=== PATIENT | female | born 1965 | race African-American/Black ===

== ENCOUNTER → 2021-02-16 | Outpatient (CLI) | payer MEDICAID ==
[~2021-02-16] MED LIST: ALBU18HF2 IH; ATOR10TA69 PO; CEFAZOLIN SODIUM 1000MG/VIAL ONE; DEXAMETHASONE 4MG/ML 1ML VIAL ONE; DICL100T2 PO; EPIN0.3A3 IM; FENTANYL CITRATE/PF 50MCG/ML 2ML VIAL ONE; FLUO20TA29 PO; GLYCOPYRROLATE 0.2 MG/ML 2ML VIAL ONE; LABETALOL HCL 5MG/ML VIAL 20ML IV ONE; LIPA1CAP18 PO; METF-873 PO; METOCLOPRAMIDE HCL 10MG/2ML VIAL ONE; MIDAZOLAM HCL 2 MG/2 ML VIAL ONE; MONT10TA32 PO; NEOSTIGMINE METHYLSULFATE 1MG/ML 10 ML VIAL ONE; OMEP20TA2 PO; ONDANSETRON HCL 4MG/2ML INJ ONE; PROPOFOL 200MG/20ML VIAL IV ONE; ROCURONIUM BROMIDE 10MG/ML VIAL 5ML IV ONE; SODIUM CHLORIDE 0.9% 10ML VIAL ONE; SUCCINYLCHOLINE CHLORIDE 200MG/10ML IV ONE; T3 PO
== END | disposition home or self-care (01) ==
LOC: LAB 11:20
PROVIDERS: ATTEND Neurological Surgery
DX: Z01.812 Encounter for preprocedural laboratory examination (principal); Z20.822 Contact with and (suspected) exposure to COVID-19
CPT/HCPCS: 87426